=== PATIENT | male | born 1935 | race Caucasian/White ===

== ENCOUNTER → 2016-07-12 | Outpatient (CLI) | payer MEDICARE ==
--- NOTE | 2016-07-12 14:23 | XR ---
EXAMINATION TYPE: XR cervical spine limited DATE OF EXAM: 07/12/2016 2:06 PM COMPARISON: NONE HISTORY: Neck pain following multiple recent falls TECHNIQUE: 3 view cervical spine FINDINGS: There is loss of disc height C4-5 C5-6 and C6-7. Anterior vertebral body spurring is presen t at these levels. There is a grade 1 spondylolisthesis of C7 anterior and T1. The lower portion of t he odontoid is limited due to overlying occiput. On the upper portion is obscured by occiput on the s econd image obtained. Overall, no obvious abnormality of the odontoid is identified on these 2 images . Posterior spinal lamellar line is intact. Prevertebral space is normal. IMPRESSION: 1. Grade 1 spondylolisthesis of C7 on T1. 2. Multilevel degenerative disc changes lower cervical spine.
--- NOTE | 2016-07-15 11:28 | CT ---
EXAMINATION TYPE: CT chest w con, CT abdomen pelvis wo con DATE OF EXAM: 07/12/2016 3:32 PM COMPARISON: Previous CT chest dated 06/13/[address] of the abdomen and pelvis dated 08/21/2015 HISTORY: Pulmonary fibrosis (accession [id number]), LLQ abdominal pain (accession [id number]) CT DLP: 203.90 (accession [id number]), 270.20 (accession [id number]) mGycm Automated exposure control for dose reduction was used. CONTRAST: CT scan of the chest is performed with IV Contrast, patient injected with 100 ml mL of Omnipaque 300. FINDINGS: There is coarse interstitial fibrosis present bilaterally. This may have progressed slightly from the previous study. No parenchymal lesion is identified. There is no significant axillary, mediastinal or hilar adenopathy. There is prominent measuring 3.8 cm. The proximal arch, the aorta measures 3.7 cm. The proximal descending thoracic aorta measures 3 cm. At the level of the aortic hiatus, the aorta is normal in caliber measuring 2.4 cm. There is no pleural or pericardial fluid. The heart is not enlarged. Within the abdomen, the gallbladder is been removed. The liver is unremarkable. There is evidence of old granulomatous disease in the spleen. Both adrenal glands are normal. There is a stable, 5.8 cm cyst arising from the lower pole of the right kidney. There is no evidence of nephrolithiasis. The pancreas appears normal. There is no significant retroperitoneal, iliac or inguinal adenopathy. The prostate is mildly enlarged. There is thickening of the bladder wall which may be due to chronic bladder outlet obstruction There is extensive diverticular change in the sigmoid region with scattered diverticula elsewhere throughout the left side of the colon. There is no radiographic evidence of diverticulitis. The appendix is not visualized. Small bowel loops are normal. There is mild hypertrophic spondylosis within the lower dorsal spine. IMPRESSION: 1. COARSE INTERSTITIAL FIBROSIS WITHIN THE LUNGS, UNCHANGED FROM PREVIOUS. 2. DESCENDING THORACIC AORTIC ANEURYSM WITH MAXIMAL TRANSVERSE DIAMETER OF 3.8 CM. 3. EVIDENCE OF OLD GRANULOMATOUS DISEASE OF THE SPLEEN. 4. STABLE, 5.8 CM RIGHT RENAL CYST. 5. THICKENING OF THE BLADDER WALL, LIKELY SECONDARY TO CHRONIC BLADDER OUTLET OBSTRUCTION. 6. EXTENSIVE DIVERTICULOSIS OF THE SIGMOID COLON. 7. MILD DEGENERATIVE CHANGES WITHIN THE SPINE. 8. NO ACUTE INFLAMMATORY ABNORMALITY. MTDD
--- NOTE | 2016-07-15 11:29 | CT ---
EXAMINATION TYPE: CT chest w con, CT abdomen pelvis wo con DATE OF EXAM: 07/12/2016 3:32 PM COMPARISON: Previous CT chest dated 06/13/[address] of the abdomen and pelvis dated 08/21/19 16 HISTORY: Pulmonary fibrosis (accession [id number]), LLQ abdominal pain (accession [id number]) CT DLP: 203.90 (accession [id number]), 270.20 (accession [id number]) mGycm Automated exposure control for dose reduction was used. CONTRAST: CT scan of the chest is performed with IV Contrast, patient injected with 100 ml mL of Omnipaque 300. FINDINGS: There is coarse interstitial fibrosis present bilaterally. This may have progressed slightl y from the previous study. No parenchymal lesion is identified. There is no significant axillary, mediastinal or hilar adenopathy. There is prominent measuring 3.8 cm. The proximal arch, the aorta measures 3.7 cm. The proximal desce nding thoracic aorta measures 3 cm. At the level of the aortic hiatus, the aorta is normal in caliber measuring 2.4 cm. There is no pleural or pericardial fluid. The heart is not enlarged. Within the abdomen, the gallbladder is been removed. The liver is unremarkable. There is evidence of old granulomatous disease in the spleen. Both adrenal glands are normal. There is a stable, 5.8 cm cyst arising from the lower pole of the right kidney. There is no evidence of nephrolithiasis. The pancreas appears normal. There is no significant retroperitoneal, iliac or inguinal adenopathy. The prostate is mildly enlarged. There is thickening of the bladder wall which may be due to chronic bladder outlet obstruction There is extensive diverticular change in the sigmoid region with scattered diverticula elsewhere thr oughout the left side of the colon. There is no radiographic evidence of diverticulitis. The appendix is not visualized. Small bowel loops are normal. There is mild hypertrophic spondylosis within the lower dorsal spine. IMPRESSION: 1. COARSE INTERSTITIAL FIBROSIS WITHIN THE LUNGS, UNCHANGED FROM PREVIOUS. 2. DESCENDING THORACIC AORTIC ANEURYSM WITH MAXIMAL TRANSVERSE DIAMETER OF 3.8 CM. 3. EVIDENCE OF OLD GRANULOMATOUS DISEASE OF THE SPLEEN. 4. STABLE, 5.8 CM RIGHT RENAL CYST. 5. THICKENING OF THE BLADDER WALL, LIKELY SECONDARY TO CHRONIC BLADDER OUTLET OBSTRUCTION. 6. EXTENSIVE DIVERTICULOSIS OF THE SIGMOID COLON. 7. MILD DEGENERATIVE CHANGES WITHIN THE SPINE. 8. NO ACUTE INFLAMMATORY ABNORMALITY.
== END | disposition home or self-care (01) ==
LOC: RADCTMAIN 13:34
PROVIDERS: ATTEND Family Medicine
DX: J84.10 Pulmonary fibrosis, unspecified (principal); I71.2 Thoracic aortic aneurysm, without rupture; N28.1 Cyst of kidney, acquired; N32.89 Other specified disorders of bladder; K57.30 Diverticulosis of large intestine without perforation or abscess without bleeding; M47.892 Other spondylosis, cervical region; M43.13 Spondylolisthesis, cervicothoracic region
CPT/HCPCS: 36415; 71260; 72040; 74176; 82565; 84520

== ENCOUNTER → 2016-07-12 | Outpatient (CLI) | payer MEDICARE ==
[2016-07-12 14:13] LABS: Blood Urea Nitrogen 14 mg/dL (9-20); Non-African American GFR(MDRD) >60 (>60 ml/min/1.73 sqM)
--- NOTE | 2016-07-15 11:30 | CT ---
EXAMINATION TYPE: CT chest w con, CT abdomen pelvis wo con DATE OF EXAM: 07/12/2016 3:32 PM COMPARISON: Previous CT chest dated 06/13/[address] of the abdomen and pelvis dated 08/21/2015 HISTORY: Pulmonary fibrosis (accession [id number]), LLQ abdominal pain (accession [id number]) CT DLP: 203.90 (accession [id number]), 270.20 (accession [id number]) mGycm Automated exposure control for dose reduction was used. CONTRAST: CT scan of the chest is performed with IV Contrast, patient injected with 100 ml mL of Omnipaque 300. FINDINGS: There is coarse interstitial fibrosis present bilaterally. This may have progressed slightly from the previous study. No parenchymal lesion is identified. There is no significant axillary, mediastinal or hilar adenopathy. There is prominent measuring 3.8 cm. The proximal arch, the aorta measures 3.7 cm. The proximal descending thoracic aorta measures 3 cm. At the level of the aortic hiatus, the aorta is normal in caliber measuring 2.4 cm. There is no pleural or pericardial fluid. The heart is not enlarged. Within the abdomen, the gallbladder is been removed. The liver is unremarkable. There is evidence of old granulomatous disease in the spleen. Both adrenal glands are normal. There is a stable, 5.8 cm cyst arising from the lower pole of the right kidney. There is no evidence of nephrolithiasis. The pancreas appears normal. There is no significant retroperitoneal, iliac or inguinal adenopathy. The prostate is mildly enlarged. There is thickening of the bladder wall which may be due to chronic bladder outlet obstruction There is extensive diverticular change in the sigmoid region with scattered diverticula elsewhere throughout the left side of the colon. There is no radiographic evidence of diverticulitis. The appendix is not visualized. Small bowel loops are normal. There is mild hypertrophic spondylosis within the lower dorsal spine. IMPRESSION: 1. COARSE INTERSTITIAL FIBROSIS WITHIN THE LUNGS, UNCHANGED FROM PREVIOUS. 2. DESCENDING THORACIC AORTIC ANEURYSM WITH MAXIMAL TRANSVERSE DIAMETER OF 3.8 CM. 3. EVIDENCE OF OLD GRANULOMATOUS DISEASE OF THE SPLEEN. 4. STABLE, 5.8 CM RIGHT RENAL CYST. 5. THICKENING OF THE BLADDER WALL, LIKELY SECONDARY TO CHRONIC BLADDER OUTLET OBSTRUCTION. 6. EXTENSIVE DIVERTICULOSIS OF THE SIGMOID COLON. 7. MILD DEGENERATIVE CHANGES WITHIN THE SPINE. 8. NO ACUTE INFLAMMATORY ABNORMALITY. MTDD
== END | disposition home or self-care (01) ==
LOC: RADCTMAIN 13:41
PROVIDERS: ATTEND Internal Medicine Critical Care Medicine
DX: J84.10 Pulmonary fibrosis, unspecified (principal); I71.2 Thoracic aortic aneurysm, without rupture; N28.1 Cyst of kidney, acquired; N32.89 Other specified disorders of bladder; K57.30 Diverticulosis of large intestine without perforation or abscess without bleeding
CPT/HCPCS: 82565; 84520; 71260; 36415; Q9967

== ENCOUNTER → 2017-07-02 | Outpatient (CLI) | payer MEDICARE ==
[2017-07-02 10:31] LABS: Blood Urea Nitrogen 12 mg/dL (9-20)
--- NOTE | 2017-07-02 12:05 | CT ---
EXAMINATION TYPE: CT chest w con DATE OF EXAM: 07/02/2017 COMPARISON: CT chest July 12, 2016 HISTORY: Idiopathic Pulmonary Fibrosis CT DLP: 131.80 mGycm. Automated Exposure Control for Dose Reduction was Utilized. TECHNIQUE: CT scan of the thorax is performed following with IV Contrast, patient injected with 100 ml mL of Omnipaque 300. FINDINGS: LUNGS: There is persistent bilateral subpleural reticulation and fibrosis with distortion involving u pper and lower lungs from apices to bases with slightly more prominent basilar involvement. No signif icant change or progression from prior study is identified. No new groundglass opacity or consolidati on is seen. No pleural effusion or pneumothorax is noted. There is persistent mild central bronchial dilatation or traction bronchiectasis. No peripheral bronchiectasis is present. No suspicious new nod ules or masses MEDIASTINUM: There are no greater than 1 cm hilar or mediastinal lymph nodes. No cardiomegaly or pe ricardial effusion is seen. Ascending aorta measures up to 3.7 cm in diameter axial image 25 unchang ed from prior. Prominent right and left pulmonary arteries are redemonstrated, CT findings suggesting underlying pulmonary hypertension. There is moderate to severe 3 vessel coronary artery calcificatio n redemonstrated. OTHER: There is better visualization of 6 cm simple appearing cyst lower pole level right kidney post erior aspect. This is stable from prior CT abdomen pelvis study July 12, 2016. There is mild mult ilevel spurring in the thoracic spine. There is stable nonspecific sclerotic focus left L1 vertebra. A few punctate calcifications scattered throughout the spleen are redemonstrated seen better on prior noncontrast study. IMPRESSION: 1. CT findings consistent with IPF redemonstrated as detailed above. No progression or significant ch valorie from prior CT. No acute pulmonary process is noted. 2. Other findings stable as detailed above.
== END | disposition home or self-care (01) ==
LOC: RADCTMAIN 09:44
PROVIDERS: ATTEND Internal Medicine Critical Care Medicine
DX: J84.112 Idiopathic pulmonary fibrosis (principal)
CPT/HCPCS: 82565; 84520; 71260; 36415; Q9967

== ENCOUNTER 2017-09-15 16:42 | Inpatient (IN) | payer MEDICARE ==
[2017-09-15] MEDS ORDERED: IPRATROPIUM-ALBUTEROL 3 ML NEB INHALATION STA (17:41)
[2017-09-15] MEDS ORDERED: SODIUM CHLORIDE 0.9% 1,000 ML IV STA ×2 (17:41)
[2017-09-15 17:58] LABS: Basophils % (A) 0 %; Eosinophils % (A) 0 %; HCT 41.7 % (39.0-53.0); HGB 14.5 gm/dL (13.0-17.5); Lymphocytes # (A) 0.6 k/uL (1.0-4.8); Lymphocytes % (A) 5 %; MCH 30.9 pg (25.0-35.0); MCHC 34.9 g/dL (31.0-37.0); MCV 88.6 fL (80.0-100.0); Mean Platelet Volume 6.5; Monocytes # (A) 0.8 k/uL (0-1.0); Monocytes % (A) 6 %; Neutrophils # (A) 12.2 k/uL (1.3-7.7); Neutrophils % (A) 88 %; Platelet Count 431 k/uL (150-450); RDW 12.7 % (11.5-15.5); WBC 13.8 k/uL (3.8-10.6)
[2017-09-15 18:07] LABS: Appearance,Urine Clear (Clear); Bacteria,Urine Rare /hpf; Bilirubin,Urine Negative (Negative); Blood,Urine Small (Negative); Color,Urine Yellow; Glucose,Urine (UA) Negative (Negative); Hyaline Casts,Urine 139 /lpf (0-2); Ketones,Urine 2+ (Negative); Leukocyte Esterase,Urine Negative (Negative); Mucus,Urine Rare /hpf; Nitrite,Urine Negative (Negative); PH, Urine 6.5 (5.0-8.0); Protein,Urine 2+ (Negative); RBC,Urine 7 /hpf (0-5); Specific Gravity,Urine 1.014 (1.001-1.035); Squamous Epithelial Cell,Urine <1 /hpf (0-4); Urobilinogen,Urine <2.0 mg/dL (<2.0); WBC,Urine 4 /hpf (0-5)
[2017-09-15 18:12] LABS: ALT 31 U/L (21-72); AST 37 U/L (17-59); Albumin 3.1 g/dL (3.5-5.0); Alkaline Phosphatase 90 U/L (38-126); Anion Gap 14 mmol/L; Blood Urea Nitrogen 16 mg/dL (9-20); Calcium 9.4 mg/dL (8.4-10.2); Carbon Dioxide 26 mmol/L (22-30); Chloride 94 mmol/L (98-107); Glucose 111 mg/dL (74-99); Magnesium 2.1 mg/dL (1.6-2.3); Phosphorus 3.3 mg/dL (2.5-4.5); Potassium 4.1 mmol/L (3.5-5.1); Sodium 134 mmol/L (137-145); Total Bilirubin 0.5 mg/dL (0.2-1.3); Total Protein 6.3 g/dL (6.3-8.2)
[2017-09-15 18:13] LABS: INR 1.1 (<1.2); Partial Thromboplastin Time 22.6 sec (22.0-30.0); Prothrombin Time 10.4 sec (9.0-12.0)
--- NOTE | 2017-09-15 18:16 | ED ---
General Adult HPI - General Chief complaint: Recheck/Abnormal Lab/Rx Stated complaint: DERRICK Time Seen by Provider: 09/15/17 16:54 Source: patient, family, RN notes reviewed, old records reviewed, Caregiver Mode of arrival: wheelchair Limitations: altered mental status, physical limitation - History of Present Illness Initial comments: This is an 82-year-old male to the ER for evaluation of severe weakness. Patient sent in by family doctor for further evaluation and management. Patient not eating appropriately, increasing shortness of breath weakness fatigue. Constantly sleeping. No recent change in medications. Patient hospital about 5 days ago and had significant worsening of symptoms since - Related Data Home Medications Medication Instructions Recorded Confirmed Ezetimibe [Zetia] 10 mg PO HS 11/15/13 09/15/17 Fish Oil/Dha/Epa [Fish Oil 1,200 1 cap PO BID 11/15/13 09/15/17 mg Fish Oil] Multivitamin [Men's Multi-Vitamin] 1 tab PO DAILY 11/15/13 09/15/17 Red Yeast Rice 1,200 mg PO DAILY 11/15/13 09/15/17 Ubidecarenone [Coq-10] 100 mg PO DAILY 11/15/13 09/15/17 Aloe Vera 25 mg PO DAILY 09/11/17 09/15/17 Aspirin EC [Ecotrin] 325 mg PO DAILY 09/11/17 09/15/17 Baclofen 10 mg PO BID 09/11/17 09/15/17 Gabapentin [Neurontin] 300 mg PO HS 09/11/17 09/15/17 Healthy Eyes 1 tab PO BID 09/11/17 09/15/17 Magnesium Chloride [Mag64] 64 mg PO DAILY 09/11/17 09/15/17 Metoprolol Succinate (ER) [Toprol 25 mg PO DAILY 09/11/17 09/15/17 Xl] Omeprazole 40 mg PO DAILY 09/11/17 09/15/17 Previous Rx's Medication Instructions Recorded Sucralfate [Carafate] 1 gm PO ACHS #414 ml 09/11/17 Allergies Allergy/AdvReac Type Severity Reaction Status Date / Time No Known Allergies Allergy Verified 09/15/17 17:33 Review of Systems ROS Statement: Those systems with pertinent positive or pertinent negative responses have been documented in the HPI. ROS Other: All systems not noted in ROS Statement are negative. Past Medical History Past Medical History: Eye Disorder, GERD/Reflux, Hyperlipidemia, Myocardial Infarction (PR), Musculoskeletal Disorder, Osteoarthritis (OA), Respiratory Disorder Additional Past Medical History / Comment(s): has generalized muscle spasms, pulmonary fibrosis,beginning of macular degeneration Last Myocardial Infarction Date:: 2002 History of Any Multi-Drug Resistant Organisms: None Reported Past Surgical History: Heart Catheterization With Stent, Orthopedic Surgery Additional Past Surgical History / Comment(s): lung biopsy, elbow surg. Past Anesthesia/Blood Transfusion Reactions: Postoperative Nausea & Vomiting ( PONV) Date of Last Stent Placement:: 2002 Past Psychological History: Anxiety, Depression Smoking Status: Never smoker Past Alcohol Use History: None Reported Past Drug Use History: None Reported General Exam Limitations: altered mental status, physical limitation General appearance: alert, in no apparent distress Head exam: Present: atraumatic, normocephalic, normal inspection Eye exam: Present: normal appearance, PERRL, EOMI. Absent: scleral icterus, conjunctival injection, periorbital swelling ENT exam: Present: normal exam, mucous membranes moist Neck exam: Present: normal inspection. Absent: tenderness, meningismus, lymphadenopathy Respiratory exam: Present: respiratory distress, wheezes. Absent: normal lung sounds bilaterally, rales, rhonchi, stridor Cardiovascular Exam: Present: normal rhythm, tachycardia, normal heart sounds. Absent: systolic murmur, diastolic murmur, rubs, gallop, clicks GI/Abdominal exam: Present: soft, normal bowel sounds. Absent: distended, tenderness, guarding, rebound, rigid Extremities exam: Present: normal inspection, full ROM, normal capillary refill. Absent: tenderness, pedal edema, joint swelling, calf tenderness Back exam: Present: normal inspection Neurological exam: Present: alert, oriented X3, CN II-XII intact Psychiatric exam: Present: normal affect, normal mood Skin exam: Present: warm, dry, intact, normal color. Absent: rash Course Vital Signs 09/15/17 09/15/17 09/15/17 16:47 18:15 18:19 Temperature Pulse Rate 110 H 108 H 106 H Respiratory 22 20 Rate Blood Pressure 169/101 166/89 O2 Sat by Pulse 90 L 98 Oximetry 09/15/17 09/15/17 18:31 19:32 Temperature 97.4 F L Pulse Rate 106 H 109 H Respiratory 16 Rate Blood Pressure 166/89 O2 Sat by Pulse 94 L Oximetry - Reevaluation(s) Reevaluation #1: 09/15/17 20:07 Patient with no real improvement after resuscitation and breathing treatments, given pain control EKG Findings - EKG Comments: EKG Findings:: EKG shows sinus tachycardia rate 104, AR 156, QRS 92, QTc 457 Medical Decision Making - Medical Decision Making 82 male the ER for evaluation regarding weakness, dehydration, fibrosis and hypoxia. Tachycardia. Patient to be admitted for continued evaluation resuscitation - Lab Data Result diagrams: 09/15/17 17:33 09/15/17 17:33 Lab Results 09/15/17 09/15/17 09/15/17 Range/Units 17:33 17:33 17:33 WBC 13.8 H (3.8-10.6) k/uL RBC 4.70 (4.30-5.90) m/uL Hgb 14.5 (13.0-17.5) gm/dL Hct 41.7 (39.0-53.0) % MCV 88.6 (80.0-100.0) fL MCH 30.9 (25.0-35.0) pg MCHC 34.9 (31.0-37.0) g/dL RDW 12.7 (11.5-15.5) % Plt Count 431 (150-450) k/uL Neutrophils % 88 % Lymphocytes % 5 % Monocytes % 6 % Eosinophils % 0 % Basophils % 0 % Neutrophils # 12.2 H (1.3-7.7) k/uL Lymphocytes # 0.6 L (1.0-4.8) k/uL Monocytes # 0.8 (0-1.0) k/uL Eosinophils # 0.0 (0-0.7) k/uL Basophils # 0.0 (0-0.2) k/uL PT (9.0-12.0) sec INR (<1.2) APTT (22.0-30.0) sec Sodium 134 L (137-145) mmol/L Potassium 4.1 (3.5-5.1) mmol/L Chloride 94 L (98-107) mmol/L Carbon Dioxide 26 (22-30) mmol/L Anion Gap 14 mmol/L BUN 16 (9-20) mg/dL Creatinine 0.57 L (0.66-1.25) mg/dL Est GFR (CKD-EPI)AfAm >90 (>60 ml/min/1.73 sqM) Est GFR (CKD-EPI)NonAf >90 (>60 ml/min/1.73 sqM) Glucose 111 H (74-99) mg/dL Calcium 9.4 (8.4-10.2) mg/dL Phosphorus 3.3 (2.5-4.5) mg/dL Magnesium 2.1 (1.6-2.3) mg/dL Total Bilirubin 0.5 (0.2-1.3) mg/dL AST 37 (17-59) U/L ALT 31 (21-72) U/L Alkaline Phosphatase 90 (38-126) U/L Total Creatine Kinase 102 (55-170) U/L CK-MB (CK-2) 5.1 H* (0.0-2.4) ng/mL CK-MB (CK-2) Rel Index 5.0 Troponin I 1.010 H* (0.000-0.034) ng/mL Total Protein 6.3 (6.3-8.2) g/dL Albumin 3.1 L (3.5-5.0) g/dL TSH 1.450 (0.465-4.680) mIU/L Urine Color Urine Appearance (Clear) Urine pH (5.0-8.0) Ur Specific [place] (1.001-1.035) Urine Protein (Negative) Urine Glucose (UA) (Negative) Urine Ketones (Negative) Urine Blood (Negative) Urine Nitrite (Negative) Urine Bilirubin (Negative) Urine Urobilinogen (<2.0) mg/dL Ur Leukocyte Esterase (Negative) Urine RBC (0-5) /hpf Urine WBC (0-5) /hpf Ur Squamous Epith Cells (0-4) /hpf Urine Bacteria (None) /hpf Hyaline Casts (0-2) /lpf Urine Mucus (None) /hpf 09/15/17 09/15/17 Range/Units 17:33 17:48 WBC (3.8-10.6) k/uL RBC (4.30-5.90) m/uL Hgb (13.0-17.5) gm/dL Hct (39.0-53.0) % MCV (80.0-100.0) fL MCH (25.0-35.0) pg MCHC (31.0-37.0) g/dL RDW (11.5-15.5) % Plt Count (150-450) k/uL Neutrophils % % Lymphocytes % % Monocytes % % Eosinophils % % Basophils % % Neutrophils # (1.3-7.7) k/uL Lymphocytes # (1.0-4.8) k/uL Monocytes # (0-1.0) k/uL Eosinophils # (0-0.7) k/uL Basophils # (0-0.2) k/uL PT 10.4 (9.0-12.0) sec INR 1.1 (<1.2) APTT 22.6 (22.0-30.0) sec Sodium (137-145) mmol/L Potassium (3.5-5.1) mmol/L Chloride (98-107) mmol/L Carbon Dioxide (22-30) mmol/L Anion Gap mmol/L BUN (9-20) mg/dL Creatinine (0.66-1.25) mg/dL Est GFR (CKD-EPI)AfAm (>60 ml/min/1.73 sqM) Est GFR (CKD-EPI)NonAf (>60 ml/min/1.73 sqM) Glucose (74-99) mg/dL Calcium (8.4-10.2) mg/dL Phosphorus (2.5-4.5) mg/dL Magnesium (1.6-2.3) mg/dL Total Bilirubin (0.2-1.3) mg/dL AST (17-59) U/L ALT (21-72) U/L Alkaline Phosphatase (38-126) U/L Total Creatine Kinase (55-170) U/L CK-MB (CK-2) (0.0-2.4) ng/mL CK-MB (CK-2) Rel Index Troponin I (0.000-0.034) ng/mL Total Protein (6.3-8.2) g/dL Albumin (3.5-5.0) g/dL TSH (0.465-4.680) mIU/L Urine Color Yellow Urine Appearance Clear (Clear) Urine pH 6.5 (5.0-8.0) Ur Specific [place] 1.014 (1.001-1.035) Urine Protein 2+ H (Negative) Urine Glucose (UA) Negative (Negative) Urine Ketones 2+ H (Negative) Urine Blood Small H (Negative) Urine Nitrite Negative (Negative) Urine Bilirubin Negative (Negative) Urine Urobilinogen <2.0 (<2.0) mg/dL Ur Leukocyte Esterase Negative (Negative) Urine RBC 7 H (0-5) /hpf Urine WBC 4 (0-5) /hpf Ur Squamous Epith Cells <1 (0-4) /hpf Urine Bacteria Rare H (None) /hpf Hyaline Casts 139 H (0-2) /lpf Urine Mucus Rare H (None) /hpf - Radiology Data Radiology results: report reviewed (Chest x-rays negative for acute disease), image reviewed Disposition Clinical Impression: Weakness, Dehydration, Elevated troponin Disposition: ADMITTED IP TO THIS [facility] Condition: Undetermined Is patient prescribed a controlled substance at discharge?: No If prescribed controlled substance>3 days was MAPS reviewed?: No When asked, does pt state using other controlled substances?: Yes Referrals: Rodrigo Gaffney MD [Primary Care Provider] - 1-2 days
[2017-09-15 18:48] LABS: Creatine Kinase MB 5.1 ng/mL (0.0-2.4); Troponin I 1.01 ng/mL (0.000-0.034)
--- NOTE | 2017-09-15 19:32 | XR ---
EXAMINATION: XR chest 2V DATE AND TIME: 09/15/2017 6:59 PM ORDERING PROVIDER: Christiano Mac DO CLINICAL INDICATION: Weakness TECHNIQUE: PA and lateral COMPARISON: 04/21/2012 DESCRIPTION: There is marked obscuration of the pulmonary vasculature by a fine reticular pattern of increased density throughout the lungs bilaterally and diffusely, with areas of coalescent opacity ai rspace filling process laterally involving the mid and lower lung zone. These changes suggest a compo nent of pulmonary edema. There is a baseline coarse reticular pattern throughout the lungs consistent with chronic interstitia l lung change. Cardiac silhouette top normal, similar in appearance. Pleural spaces unremarkable. Bones and soft tissues negative for acute findings. IMPRESSION: MARKED PULMONARY ABNORMALITIES, RIGHT GREATER THAN LEFT.
[2017-09-15] MEDS ORDERED: NITROGLYCERIN SL TABS 0.4 MG TAB SUBLINGUAL PRN (20:03)
[2017-09-15] MEDS ORDERED: DEXTROSE 5%-0.45% NACL 1,000 ML IV ONE (20:08)
[2017-09-15] MEDS ORDERED: MORPHINE SULFATE 4MG/4ML SYRG IVP PRN (20:08)
[2017-09-15] MEDS ORDERED: HEPARIN SOD,PORK IN 0.45% NACL 25,000 UNIT in 0.45% NACL 1 500ML.BAG IV SCH (22:15)
[2017-09-15] MEDS ORDERED: ONDANSETRON 4 MG/2 ML VIAL IVP PRN (22:30)
[2017-09-15] MEDS ORDERED: CALCIUM CARBONATE 500 MG CHEWABLE PO PRN (22:30)
[2017-09-15] MEDS ORDERED: MAGNESIUM HYDROXIDE 2,400 MG/10 ML CUP PO PRN (22:30)
[2017-09-15] MEDS ORDERED: MELATONIN 3 MG TABLET PO PRN (22:30)
[2017-09-15] MEDS ORDERED: LACTULOSE 20 GM/30 ML CUP PO PRN (22:30)
[2017-09-15] MEDS ORDERED: GABAPENTIN 300 MG CAP PO SCH (22:30)
[2017-09-15] MEDS ORDERED: ALPRAZolam 0.25 MG TAB PO PRN (22:30)
[2017-09-15] MEDS ORDERED: NALOXONE 0.4 MG/ML 1 ML VIAL IV PRN (22:30)
[2017-09-15] MEDS ORDERED: EZETIMIBE 10 MG TAB PO SCH (22:30)
[2017-09-15] MEDS ORDERED: ACETAMINOPHEN TAB 325 MG TAB PO PRN (22:30)
[2017-09-15] MEDS ORDERED: cefTRIAXone IN SWFI 1,000 MG/10 ML SYRINGE IVP SCH (23:00)
--- NOTE | 2017-09-15 23:15 | HP ---
HISTORY AND PHYSICAL OF ADMISSION: September 15, 2017. PRESENTING COMPLAINT: Short of breath, tired. HISTORY OF PRESENTING COMPLAINT: 82 -year-old patient of Dr. Rodrigo Gaffney out of [facility]. The patient presents with his and 2 daughters. The patient has a known diagnosis of pulmonary fibrosis, being followed by Dr. Spangler. Also known history of coronary artery with stent. For last few days, progressively getting worse. A bit more short of breath, slight cough. No obvious fever, tired, run down. The patient was in the ER [address] scan of the chest showed possible pneumonitis. The patient was sent home for further workup as an outpatient. The patient denies any obvious chest pressure, was short of breath. The patient has got decreased appetite, has been losing more weight and also 9 mm shunt was found on the pancreas on the CT scan done in the ER visit 2 days ago. Because of all these combination of symptoms, the patient was sent in from Dr. Gaffney's office to the ER. REVIEW OF SYSTEMS: Constitutional: Loss of appetite, weight loss. HEENT none. Respiratory: Short of breath, cough. No sputum. Gastrointestinal none. Genitourinary decreased urine output. Musculoskeletal: Arthritic pain in many joints. Hematologic, lymphatic none. Psychiatry: Some anxiety and depression. Neurological none. PAST MEDICAL HISTORY: Pulmonary fibrosis. BPH and GERD, osteoarthritis, coronary artery disease with stent, muscle spasms, macular degeneration. PAST SURGICAL HISTORY: Cardiac cath with stent, right lung biopsy. PSYCH HISTORY: Anxiety, depression. SOCIAL HISTORY: Does not smoke or drink alcohol. 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 . FAMILY HISTORY: Reviewed, noncontributory to presentation. HOME MEDICATIONS: 1. CO Q 10 100 mg p.o. daily. 2. Carafate 1 g p.o. q.a.c. and q.h.s. 3. Red yeast rice 200 mg p.o. daily. 4. Omeprazole 40 mg p.o. daily. 5. Men's multivitamin 1 tab p.o. daily. 6. Toprol-XL 25 mg p.o. daily. 7. Magnesium 64 mg p.o. daily. 8. Healthy eyes 1 tab p.o. b.i.d. 9. Neurontin 300 mg q.h.s. 10.Fish oil 1200 mg 1 capsule p.o. b.i.d. 11.Zetia 10 mg p.o. q.h.s. 12.Baclofen 10 mg p.o. b.i.d. 13.Aspirin 325 p.o. daily. 14.Aloe Vera 25 mg p.o. daily. ALLERGIES: None. PHYSICAL EXAMINATION: Temperature 97.4, pulse 120, respirations 16, blood pressure 156/80, pulse ox 93% on room air. General appearance: Thin build, loss of muscle mass, lying in bed, very tired-appearing. BMI 18.8. HEENT: External appearance of nose and ears normal. Oral cavity dry. Neck JVD not raised. Mass not palpable. Respiratory effort increased. Lungs diffuse crackles. Cardiovascular 1st and second sounds normal. No edema. ABDOMEN: Soft. Abdomen scaphoid. Liver and spleen not palpable. No mass palpable. Lymphatics: No lymph nodes palpable in the neck or axillae. PSYCHIATRY: Alert and oriented x3. Mood and affect anxious-appearing. Neurological: Pupils equal. Cranial nerves grossly intact. Power sensation grossly intact. Musculoskeletal diffuse wasting of the muscles. INVESTIGATIONS: White count 13.8, hemoglobin 14.5, potassium 4.1, BUN 16, creatinine 0.57, troponin 1.0. TSH normal. EKG sinus tachycardia with possible P-pulmonale. CT scan from 2 days ago evidence of pulmonary fibrosis with possible superimposed infiltrate. ASSESSMENT: 1. Possible acute myocardial infarction, non-Q-wave difficult to say when the symptoms started. 2. Pulmonary fibrosis. 3. Possible superimposed pneumonia suspect gram-negative organism. 4. Sigmoid diverticulosis, asymptomatic. 5. Benign prostatic hypertrophy. 6. Gastroesophageal reflux disease. 7. Primary osteoarthritis. 8. Coronary artery disease, prior history of stent. 9. Mild protein calorie malnutrition from decreased oral intake. 10.Pancreatic 9 mm shadow. PLAN: Patient is put on IV heparin, beta steve, aspirin. We will start on IV ceftriaxone. Consultation is made to Cardiology, Pulmonary and Gastroenterology. Care was discussed with the patient and at the bedside. Questions were answered. Copy Dr. Gaffney from [facility]. MMODL / IJN: [id number] /
[2017-09-16 01:27] LABS: Creatine Kinase MB 4.3 ng/mL (0.0-2.4); Troponin I 0.874 ng/mL (0.000-0.034)
[2017-09-16 05:49] LABS: Cholesterol 91 mg/dL (<200); HDL Cholesterol 29 mg/dL (40-60); LDL Cholesterol,Calculated 51 mg/dL (0-99); Triglycerides 53 mg/dL (<150)
[2017-09-16 06:46] LABS: Creatine Kinase MB 3.9 ng/mL (0.0-2.4); Troponin I 0.771 ng/mL (0.000-0.034)
[2017-09-16] MEDS ORDERED: PANTOPRAZOLE 40 MG TABLET PO SCH (07:30)
--- NOTE | 2017-09-16 08:32 | P.CRDCN ---
History of Present Illness Consult date: 09/16/17 Requesting physician: Hollis Squires Reason for Consult (text): Abnormal troponins Chief complaint: Weakness and tiredness History of present illness: This is a pleasant 82-year-old gentleman who follows with Dr. Pena in the office. He has known history of coronary artery disease with prior myocardial infarction and stent placement in 2002 according to him, LAD stent at that time, history of pulmonary fibrosis, hyperlipidemia, he presents to the hospital on this occasion with symptoms of progressive weakness and tiredness. There were no family members at his bedside at the time of my examination, he is able to give history but is extremely tired and slow to speak. Patient states that in the past 6 months or so he has lost a significant amount of weight. He denies having any abdominal discomfort or chest discomfort at home. Troponins were drawn on admission here which came back to be abnormal and for this reason a cardiology consultation was requested. EKG on admission here showed a sinus tachycardia with no acute changes. Chest x-ray reveals marked pulmonary abnormalities right greater than left. Patient has been in the emergency room, he had a CTA of the abdomen and pelvis performed which revealed chronic pulmonary fibrosis, multifocal pneumonia or some type of inflammatory pneumonitis which was new from his CAT scan of June. A possible 9 mm enhancing soft tissue nodule also noted on the pancreas. Blood pressure 162/78 , heart rate 108, afebrile, 96% on 2 L of oxygen. White blood cell count 13.8, hemoglobin 14.5, platelet count 431. Sodium 134, potassium 4.1, BUN 16, creatinine 0.7. Troponins 1.0, 0.8, 0.7. TSH 1.45. At the time of my examination this morning, patient is extremely weak, denies chest pain, significantly short of breath, no dizziness or lightheadedness. Patient states that he wishes to have no further procedures done in relation to his heart, he states that he wants to be kept comfortable. We will discuss this further with the family arrives Past Medical History Past Medical History: Eye Disorder, GERD/Reflux, Hyperlipidemia, Myocardial Infarction ([place]), Musculoskeletal Disorder, Osteoarthritis (OA), Respiratory Disorder Additional Past Medical History / Comment(s): has generalized muscle spasms, pulmonary fibrosis,beginning of macular degeneration Last Myocardial Infarction Date:: 2002 History of Any Multi-Drug Resistant Organisms: None Reported Past Surgical History: Heart Catheterization With Stent, Orthopedic Surgery Additional Past Surgical History / Comment(s): lung biopsy, elbow surg. Past Anesthesia/Blood Transfusion Reactions: Postoperative Nausea & Vomiting ( PONV) Date of Last Stent Placement:: 2002 Past Psychological History: Anxiety, Depression Smoking Status: Never smoker Past Alcohol Use History: None Reported Past Drug Use History: None Reported Medications and Allergies Home Medications Medication Instructions Recorded Confirmed Type Ezetimibe [Zetia] 10 mg PO HS 11/15/13 09/15/17 History Fish Oil/Dha/Epa [Fish Oil 1,200 1 cap PO BID 11/15/13 09/15/17 History mg Fish Oil] Multivitamin [Men's Multi-Vitamin] 1 tab PO DAILY 11/15/13 09/15/17 History Red Yeast Rice 1,200 mg PO DAILY 11/15/13 09/15/17 History Ubidecarenone [Coq-10] 100 mg PO DAILY 11/15/13 09/15/17 History Aloe Vera 25 mg PO DAILY 09/11/17 09/15/17 History Aspirin EC [Ecotrin] 325 mg PO DAILY 09/11/17 09/15/17 History Baclofen 10 mg PO BID 09/11/17 09/15/17 History Gabapentin [Neurontin] 300 mg PO HS 09/11/17 09/15/17 History Healthy Eyes 1 tab PO BID 09/11/17 09/15/17 History Magnesium Chloride [Mag64] 64 mg PO DAILY 09/11/17 09/15/17 History Metoprolol Succinate (ER) [Toprol 25 mg PO DAILY 09/11/17 09/15/17 History Xl] Omeprazole 40 mg PO DAILY 09/11/17 09/15/17 History Sucralfate [Carafate] 1 gm PO ACHS #414 ml 09/11/17 09/15/17 Rx Allergies Allergy/AdvReac Type Severity Reaction Status Date / Time No Known Allergies Allergy Verified 09/15/17 17:33 Physical Exam Vitals: Vital Signs Temp Pulse Pulse Resp BP BP Pulse Ox 09/16/17 08:00 97.6 F 106 H 20 162/78 96 09/16/17 04:00 98.0 F 108 H 24 154/76 96 09/15/17 23:53 97.3 F L 108 H 20 168/74 97 09/15/17 21:10 98.4 F 120 H 16 156/80 93 L 09/15/17 19:32 97.4 F L 109 H 16 166/89 94 L 09/15/17 18:31 106 H 09/15/17 18:19 106 H 20 166/89 98 09/15/17 18:15 108 H 09/15/17 16:47 110 H 22 169/101 90 L Intake and Output 09/15/17 09/16/17 09/16/17 22:59 06:59 14:59 Intake Total 106.221 Output Total 700 200 Balance -593.779 -200 Intake: Intake, IV Titration 106.221 Amount Heparin Sod,Pork in 0.45% 106.221 NaCl 25,000 unit In 0.45 % NaCl 1 500ml.bag @ 12 UNITS/KG/HR 13.06 mls/hr IV .Q24H [facility], [facility] Rx#: [id number] Output: Urine 700 200 Other: Voiding Method Urinal # Voids 1 1 # Bowel Movements 0 Weight 54.431 kg 52.5 kg PHYSICAL EXAMINATION: This is an extremely frail 82-year-old gentleman HEENT: Head is atraumatic, normocephalic. Pupils equal, round. Neck is supple. There is no elevated jugular venous pressure. HEART EXAMINATION: Heart S1 S2 1 systolic murmur is heard CHEST EXAMINATION: Lungs reveal coarse rales throughout. ABDOMEN: Soft, nontender. Bowel sounds are heard. No organomegaly noted. EXTREMITIES: 2+ peripheral pulses with no evidence of peripheral edema and no calf tenderness noted. NEUROLOGIC patient is awake, sleepy, alert and oriented -3. . Results 09/15/17 17:33 09/15/17 17:33 Cardiac Enzymes 09/15/17 09/15/17 09/15/17 Range/Units 17:33 17:33 23:46 AST 37 (17-59) U/L CK-MB (CK-2) 5.1 H* 4.3 H* (0.0-2.4) ng/mL Troponin I 1.010 H* 0.874 H* (0.000-0.034) ng/mL 09/16/17 Range/Units 05:24 AST (17-59) U/L CK-MB (CK-2) 3.9 H* (0.0-2.4) ng/mL Troponin I 0.771 H* (0.000-0.034) ng/mL Coagulation 09/15/17 09/16/17 Range/Units 17:33 05:24 PT 10.4 (9.0-12.0) sec APTT 22.6 26.4 (22.0-30.0) sec Lipids 09/16/17 Range/Units 05:24 Triglycerides 53 (<150) mg/dL Cholesterol 91 (<200) mg/dL HDL Cholesterol 29 L (40-60) mg/dL CBC 09/15/17 Range/Units 17:33 WBC 13.8 H (3.8-10.6) k/uL RBC 4.70 (4.30-5.90) m/uL Hgb 14.5 (13.0-17.5) gm/dL Hct 41.7 (39.0-53.0) % Plt Count 431 (150-450) k/uL Comprehensive Metabolic Panel 09/15/17 Range/Units 17:33 Sodium 134 L (137-145) mmol/L Potassium 4.1 (3.5-5.1) mmol/L Chloride 94 L (98-107) mmol/L Carbon Dioxide 26 (22-30) mmol/L BUN 16 (9-20) mg/dL Creatinine 0.57 L (0.66-1.25) mg/dL Glucose 111 H (74-99) mg/dL Calcium 9.4 (8.4-10.2) mg/dL AST 37 (17-59) U/L ALT 31 (21-72) U/L Alkaline Phosphatase 90 (38-126) U/L Total Protein 6.3 (6.3-8.2) g/dL Albumin 3.1 L (3.5-5.0) g/dL Current Medications Generic Name Dose Route Start Last Admin Trade Name Freq PRN Reason Stop Dose Admin Acetaminophen 650 mg 09/15/17 22:30 Tylenol Tab PO Q6HR PRN Mild Pain or Fever > 100.5 Alprazolam 0.25 mg 09/15/17 22:30 Xanax PO Q6HR PRN Anxiety Calcium Carbonate/Glycine 1,000 mg 09/15/17 22:30 Tums PO Q4HR PRN Dyspepsia Ceftriaxone Sodium 1,000 mg 09/15/17 23:00 09/16/17 00:36 Rocephin IVP 1,000 mg HS ANUSHKA Administration Ezetimibe 10 mg 09/15/17 22:30 09/15/17 22:37 Zetia PO 10 mg HS ANUSHKA Administration Gabapentin 300 mg 09/15/17 22:30 09/15/17 22:37 Neurontin PO 300 mg HS ANUSHKA Administration Heparin Sodium/Sodium Chloride 500 mls @ 13.06 mls/hr 09/15/17 22:15 06:38 25,000 unit/ Sodium Chloride IV 15 units/kg/hr .Q24H ANUSHKA 16.32 mls/hr Protocol Titration 12 UNITS/KG/HR Lactulose 20 gm 09/15/17 22:30 Cephulac PO DAILY PRN Constipation Magnesium Hydroxide 2,400 mg 09/15/17 22:30 Milk Of Magnesia PO DAILY PRN Constipation Magnesium Oxide 400 mg 09/16/17 09:00 09/16/17 08:13 Mag-Ox PO 400 mg DAILY [facility] Administration Melatonin 3 mg 09/15/17 22:30 Melatonin PO HS PRN Insomnia Metoprolol Succinate 25 mg 09/16/17 09:00 09/16/17 08:13 Toprol Xl PO 25 mg DAILY [facility] Administration Morphine Sulfate 4 mg 09/15/17 20:08 09/15/17 20:19 Morphine Sulfate (Inj) IVP 4 mg Q4HR PRN Administration Pain Naloxone HCl 0.2 mg 09/15/17 22:30 Narcan IV Q2M PRN Opioid Reversal Nitroglycerin 0.4 mg 09/15/17 20:03 Nitrostat SUBLINGUAL Q5M PRN Chest Pain Ondansetron HCl 4 mg 09/15/17 22:30 Zofran IVP Q8HR PRN Nausea And Vomiting Pantoprazole Sodium 40 mg 09/16/17 07:30 09/16/17 08:13 Protonix PO 40 mg AC-BRKFST [facility] Administration Intake and Output 09/15/17 09/16/17 09/16/17 22:59 06:59 14:59 Intake Total 106.221 Output Total 700 200 Balance -593.779 -200 Intake: Intake, IV Titration 106.221 Amount Heparin Sod,Pork in 0.45% 106.221 NaCl 25,000 unit In 0.45 % NaCl 1 500ml.bag @ 12 UNITS/KG/HR 13.06 mls/hr IV .Q24H [facility] Rx#: [id number] Output: Urine 700 200 Other: Voiding Method Urinal # Voids 1 1 # Bowel Movements 0 Weight 54.431 kg 52.5 kg 18 17:33 09/15/17 17:33 EKG Interpretations (text) EKG shows a sinus tachycardia with no acute changes. Assessment and Plan Plan: Assessment and plan #1 symptoms of extremely worsening weakness and tiredness with associated weight loss. Recent CTA performed on the 12th of this month revealed pneumonia with possible pneumonitis, 9 mm nodule noted on the pancreas. #2 known history of coronary artery disease with prior LAD stenting #3 hyperlipidemia #4 abnormal troponins, could reflect acute coronary syndrome in this 82-year- old patient with known history of coronary artery disease. Patient does not wish to have any invasive procedures performed. Plan We will obtain an echocardiogram with Doppler study. We will continue conservative maximal medical therapy. Place the patient on a baby aspirin, continue Zetia, increase dose of beta steve for more optimal blood pressure and heart rate control. Further recommendations to follow. DNP note has been reviewed, I agree with a documented findings and plan of care. Patient was seen and examined.
[2017-09-16] MEDS ORDERED: METOPROLOL SUCCINATE (ER) 25 MG TAB.ER.24H PO ONE (08:45)
[2017-09-16] MEDS ORDERED: METOPROLOL SUCCINATE (ER) 25 MG TAB.ER.24H PO SCH (09:00)
[2017-09-16] MEDS ORDERED: ASPIRIN 81 MG PO SCH (09:00)
[2017-09-16] MEDS ORDERED: MAGNESIUM OXIDE 400 MG TAB PO SCH (09:00)
[2017-09-16] MEDS ORDERED: MORPHINE ORAL SOLN 10 MG/5 ML CUP PO PRN (09:25)
--- NOTE | 2017-09-16 09:37 | P.PN ---
Progress Note - Text This is an addendum to the dictated cardiology consultation. The patient has a known history of CAD status post stenting of the LAD who presents with symptoms of progressive fatigue, weakness and significant weight loss over the last 6 months. He denies any symptoms of chest discomfort. His troponin were minimally elevated and cardiology consultation was requested. The patient follows on a regular basis with Dr. Pena. His systolic function in the past was normal and had no history of atrial fibrillation or CHF. He denies any anginal pain. He has a history of pulmonary fibrosis and has been followed by Dr. Spangler. The etiology of his significant weight loss and progressive weakness is unclear. He had a CAT scan done recently the trace the possibility of a lesion on the pancreas. The elevation of his troponin could to present a small non- STEMI but in view of his overall status I do not believe that he is a candidate for any aggressive workup. We will continue the present medical regimen awaiting further evaluation of his weight loss. Thank you for this consult we will follow with you.
[2017-09-16] MEDS ORDERED: ISOSORBIDE MONONITRATE ER 30 MG TAB.ER.24H PO SCH (09:45)
[2017-09-16 09:55] VITALS: BMI 18.1
--- NOTE | 2017-09-16 10:29 | P.CONS ---
History of Present Illness - Reason for Consult Consult date: 09/16/17 Weight loss Requesting physician: Hollis Squires - History of Present Illness 82-year-old gentleman with a history of cholecystectomy, severe pulmonary fibrosis CAD [place] PCI stent admitted with progressive weakness fatigue difficulty speaking secondary to increased shortness of breath. Consult requested for GI evaluation. Apparently patient reports of unintentional 45-50 pound weight loss over the last several months without bleeding or pain. No recent EGD colonoscopy. Difficult to obtain history this patient is profoundly more dyspneic when speaking. 09/11/2017 CTA abdomen and pelvis reported chronic pulmonary fibrosis multifocal pneumonia or possible pneumonitis. Possible 9 mm enhancing soft tissue nodule also noticed on the pancreas in the uncinate process early pancreatic carcinoma cannot be excluded. Prostatomegaly 5.1 cm wide. No jaundice or acholic stools. White count 13.8. Hemoglobin 14.5. Platelets 431. Liver function tests normal. Troponin 0.7-1.0. BNP 8630. INR 1.1. Lipase 30. Previous CT imaging July 2016 reported no abnormalities of the liver. Pancreas appeared normal. Sigmoid diverticulosis. Review of Systems Constitutional: Denies fever, chills, sweats, weight gain, or loss. HEENT: Negative for migraines, history of macular degeneration, denies earaches , drainage, tinnitus, oral mucosal lesions, dysphagia, or odynophagia. Cardiac: Negative for chest pain, arrhythmias, or palpitation. Respiratory: Chronic shortness of breath denies, hemoptysis, cough, or sputum production. Gastrointestinal: See HPI for pertinent findings. Genitourinary: Negative for hematuria, urgency, frequency, polyuria, dysuria, or penile discharge. Musculoskeletal: Negative for muscle aches, swelling, arthritis, and arthralgias. Neurologic: Negative for stroke or TIA. Endocrine: Negative for thyroid problems. Skin: Negative for rash or itching. Psychiatric: History of anxiety. Past Medical History Past Medical History: Eye Disorder, GERD/Reflux, Hyperlipidemia, Myocardial Infarction ([place]), Musculoskeletal Disorder, Osteoarthritis (OA), Respiratory Disorder Additional Past Medical History / Comment(s): has generalized muscle spasms, pulmonary fibrosis,beginning of macular degeneration Last Myocardial Infarction Date:: 2002 History of Any Multi-Drug Resistant Organisms: None Reported Past Surgical History: Heart Catheterization With Stent, Orthopedic Surgery Additional Past Surgical History / Comment(s): lung biopsy, elbow surg. Past Anesthesia/Blood Transfusion Reactions: Postoperative Nausea & Vomiting ( PONV) Date of Last Stent Placement:: 2002 Past Psychological History: Anxiety, Depression Smoking Status: Never smoker Past Alcohol Use History: None Reported Past Drug Use History: None Reported Medications and Allergies Home Medications Medication Instructions Recorded Confirmed Type Ezetimibe [Zetia] 10 mg PO HS 11/15/13 09/15/17 History Fish Oil/Dha/Epa [Fish Oil 1,200 1 cap PO BID 11/15/13 09/15/17 History mg Fish Oil] Multivitamin [Men's Multi-Vitamin] 1 tab PO DAILY 11/15/13 09/15/17 History Red Yeast Rice 1,200 mg PO DAILY 11/15/13 09/15/17 History Ubidecarenone [Coq-10] 100 mg PO DAILY 11/15/13 09/15/17 History Aloe Vera 25 mg PO DAILY 09/11/17 09/15/17 History Aspirin EC [Ecotrin] 325 mg PO DAILY 09/11/17 09/15/17 History Baclofen 10 mg PO BID 09/11/17 09/15/17 History Gabapentin [Neurontin] 300 mg PO HS 09/11/17 09/15/17 History Healthy Eyes 1 tab PO BID 09/11/17 09/15/17 History Magnesium Chloride [Mag64] 64 mg PO DAILY 09/11/17 09/15/17 History Metoprolol Succinate (ER) [Toprol 25 mg PO DAILY 09/11/17 09/15/17 History Xl] Omeprazole 40 mg PO DAILY 09/11/17 09/15/17 History Sucralfate [Carafate] 1 gm PO ACHS #414 ml 09/11/17 09/15/17 Rx Allergies Allergy/AdvReac Type Severity Reaction Status Date / Time No Known Allergies Allergy Verified 09/15/17 17:33 Physical Exam Vitals: Vital Signs Temp Pulse Pulse Resp BP BP Pulse Ox 09/16/17 08:00 97.6 F 106 H 20 162/78 96 09/16/17 04:00 98.0 F 108 H 24 154/76 96 09/15/17 23:53 97.3 F L 108 H 20 168/74 97 09/15/17 21:10 98.4 F 120 H 16 156/80 93 L 09/15/17 19:32 97.4 F L 109 H 16 166/89 94 L 09/15/17 18:31 106 H 09/15/17 18:19 106 H 20 166/89 98 09/15/17 18:15 108 H 09/15/17 16:47 110 H 22 169/101 90 L Intake and Output 09/15/17 09/16/17 09/16/17 22:59 06:59 14:59 Intake Total 106.221 Output Total 700 200 Balance -593.779 -200 Intake: Intake, IV Titration 106.221 Amount Heparin Sod,Pork in 0.45% 106.221 NaCl 25,000 unit In 0.45 % NaCl 1 500ml.bag @ 12 UNITS/KG/HR 13.06 mls/hr IV .Q24H [facility] Rx#: [id number] Output: Urine 700 200 Other: Voiding Method Urinal # Voids 1 1 # Bowel Movements 0 Weight 54.431 kg 52.5 kg 52.5 kg General appearance: The patient is alert, oriented, difficulty breathing with speech. Overall cachectic appearance. HET: Head is normocephalic and atraumatic. Pupils are equal and reactive. Oropharynx is clear without lesions. Neck: Supple without lymphadenopathy. Trachea midline. Heart: S1 S2. Regular rate and rhythm. Lungs: Diminished throughout. Abdomen: Soft, nontender, nondistended with bowel sounds. No peritoneal signs. No palpable organomegaly or masses. Extremities: Normal skin color and turgor. No cyanosis, rash, ulceration, clubbing, or edema. Radial and pedal pulses are 2/4 bilaterally. Neurological: No focal deficits. Strength and sensation are grossly intact. Results CBC & Chem 7: 09/15/17 17:33 09/15/17 17:33 Labs: Abnormal Lab Results - Last 24 Hours (Table) 09/15/17 09/15/17 09/15/17 Range/Units 17:33 17:33 17:33 WBC 13.8 H (3.8-10.6) k/uL Neutrophils # 12.2 H (1.3-7.7) k/uL Lymphocytes # 0.6 L (1.0-4.8) k/uL Sodium 134 L (137-145) mmol/L Chloride 94 L (98-107) mmol/L Creatinine 0.57 L (0.66-1.25) mg/dL Glucose 111 H (74-99) mg/dL CK-MB (CK-2) 5.1 H* (0.0-2.4) ng/mL Troponin I 1.010 H* (0.000-0.034) ng/mL Albumin 3.1 L (3.5-5.0) g/dL HDL Cholesterol (40-60) mg/dL Urine Protein (Negative) Urine Ketones (Negative) Urine Blood (Negative) Urine RBC (0-5) /hpf Urine Bacteria (None) /hpf Hyaline Casts (0-2) /lpf Urine Mucus (None) /hpf 09/15/17 09/15/17 09/16/17 Range/Units 17:48 23:46 05:24 WBC (3.8-10.6) k/uL Neutrophils # (1.3-7.7) k/uL Lymphocytes # (1.0-4.8) k/uL Sodium (137-145) mmol/L Chloride (98-107) mmol/L Creatinine (0.66-1.25) mg/dL Glucose (74-99) mg/dL CK-MB (CK-2) 4.3 H* 3.9 H* (0.0-2.4) ng/mL Troponin I 0.874 H* 0.771 H* (0.000-0.034) ng/mL Albumin (3.5-5.0) g/dL HDL Cholesterol (40-60) mg/dL Urine Protein 2+ H (Negative) Urine Ketones 2+ H (Negative) Urine Blood Small H (Negative) Urine RBC 7 H (0-5) /hpf Urine Bacteria Rare H (None) /hpf Hyaline Casts 139 H (0-2) /lpf Urine Mucus Rare H (None) /hpf 09/16/17 Range/Units 05:24 WBC (3.8-10.6) k/uL Neutrophils # (1.3-7.7) k/uL Lymphocytes # (1.0-4.8) k/uL Sodium (137-145) mmol/L Chloride (98-107) mmol/L Creatinine (0.66-1.25) mg/dL Glucose (74-99) mg/dL CK-MB (CK-2) (0.0-2.4) ng/mL Troponin I (0.000-0.034) ng/mL Albumin (3.5-5.0) g/dL HDL Cholesterol 29 L (40-60) mg/dL Urine Protein (Negative) Urine Ketones (Negative) Urine Blood (Negative) Urine RBC (0-5) /hpf Urine Bacteria (None) /hpf Hyaline Casts (0-2) /lpf Urine Mucus (None) /hpf Microbiology - Last 24 Hours (Table) 09/15/17 17:48 Urine Culture - Preliminary Urine,Voided CT scan - abdomen: report reviewed (Dr. Loredo) Assessment and Plan (1) Weight loss, unintentional Narrative/Plan: 82-year-old male with severe pulmonary fibrosis presents with profound weakness fatigue and anorexia unintentional weight loss 45-[address] imaging reporting prostatomegaly 5.1 cm wide and a possible soft tissue mass 9 mm in the pancreatic uncinate early pancreatic neoplasm cannot be excluded. Status: Acute Code(s): R63.4 - ABNORMAL WEIGHT LOSS SNOMED Code(s): 318504632 (2) Pulmonary fibrosis Status: Acute Code(s): J84.10 - PULMONARY FIBROSIS, UNSPECIFIED SNOMED Code( s): 68399875 (3) Pancreatic mass Narrative/Plan: Possible pancreatic mass uncinate process early neoplasm cannot be excluded Status: Acute Code(s): K86.9 - DISEASE OF PANCREAS, UNSPECIFIED SNOMED Code( s): 901496614 (4) Prostate enlargement Narrative/Plan: Per CT Status: Acute Code(s): N40.0 - BENIGN PROSTATIC HYPERPLASIA WITHOUT LOWER URINRY TRACT SYMP SNOMED Code(s): 447303699 (5) Elevated troponin Status: Acute Code(s): R74.8 - ABNORMAL LEVELS OF OTHER SERUM ENZYMES SNOMED Code(s): 901544168 Plan: 1. CEA. CA-19-9 markers. Recommend urology evaluation for enlarged prostate. EGD colonoscopy is recommended for evaluation of anorexia and unintentional weight loss however patient is presently having difficulty talking with increased respiratory rate secondary to his underlying pulmonary fibrosis. At this time patient is at an increased risk for anesthesia secondary to his underlying lung disease; patient will require pulmonary clearance prior to endoscopic evaluations. Case was discussed with staff submarine warfare officer Dr. Spangler he will evaluate patient today and provided additional guidance. Additionally case was discussed with dietitian continue with protein shake supplementation 3 times a day and diet as tolerated. We'll follow closely with you. Thank you for this kind referral and the opportunity to participate in the care of your patient. This consultation was discussed with Dr. Loredo. The impression and plan of care have been directed as dictated.
[2017-09-16] MEDS ORDERED: LEVOFLOXACIN 750 MG TAB PO SCH (10:45)
[2017-09-16] MEDS ORDERED: PIPERACILLIN-TAZOBACTAM 3.375 GM in DEXTROSE/WATER 1 50ML.BAG IVPB SCH (11:00)
[2017-09-16] MEDS: methylPREDNISolone SOD SUCCI 125 MG/2 ML VIAL IV SCH ×2 (11:26→17:10)
--- NOTE | 2017-09-16 11:31 | ECHOF ---
Referral Reason:abn trop MEASUREMENTS -------- HEIGHT: 170.2 cm WEIGHT: 52.2 kg BP: 162/78 IVSd: 1.4 cm (0.6 - 1.1) LVIDd: 2.9 cm (3.9 - 5.3) LVPWd: 1.2 cm (0.6 - 1.1) IVSs: 1.8 cm LVIDs: 2.3 cm LVPWs: 1.5 cm LAESV Index (A-L): 17.63 ml/m Ao Diam: 3.6 cm (2.0 - 3.7) AV Cusp: 2.3 cm (1.5 - 2.6) LA Diam: 2.3 cm (2.7 - 3.8) MV EXCURSION: 14.056 mm (> 18.000) MV EF SLOPE: 71 mm/s (70 - 150) EPSS: 0.5 cm MV E Shemar: 0.51 m/s MV DecT: 82 ms MV A Shemar: 1.08 m/s MV E/A Ratio: 0.47 RAP: 5.00 mmHg RVSP: 41.77 mmHg FINDINGS -------- Resting tachycardia (HR>100bpm). This was a technically good study. The left ventricular size is normal. There is mild concentric left ventricular hypertrophy. Overa ll left ventricular systolic function is low-normal with, an EF between 50 - 55 %. Mid to basal inf erior hypokinesis The right ventricle is normal in size and function. The left atrium is normal in size. The right atrium is normal in size. Aortic valve is trileaflet and is mildly thickened. The mitral valve leaflets are mildly thickened. Mild mitral annular calcification present. Mild m itral regurgitation is present. Mild tricuspid regurgitation present. There is mild pulmonary hypertension. The right ventricular systolic pressure, as measured by Doppler, is 41.77mmHg. Trace/mild (physiologic) pulmonic regurgitation. The aortic root size is normal. Normal inferior vena cava with normal inspiratory collapse consistent with estimated right atrial pre ssure of 5 mmHg. The pericardium is normal. CONCLUSIONS -------- 1. Resting tachycardia (HR>100bpm). 2. This was a technically good study. 3. The left ventricular size is normal. 4. There is mild concentric left ventricular hypertrophy. 5. Mid to basal inferiorlateral is hypokinetic 6. The right ventricle is normal in size and function. 7. The left atrium is normal in size. 8. The right atrium is normal in size. 9. Aortic valve is trileaflet and is mildly thickened. 10. The mitral valve leaflets are mildly thickened. 11. Mild mitral annular calcification present. 12. Mild mitral regurgitation is present. 13. Mild tricuspid regurgitation present. 14. There is mild pulmonary hypertension. 15. The right ventricular systolic pressure, as measured by Doppler, is 41.77mmHg. 16. Trace/mild (physiologic) pulmonic regurgitation. 17. The aortic root size is normal. 18. Normal inferior vena cava with normal inspiratory collapse consistent with estimated right atrial pressure of 5 mmHg. 19. The pericardium is normal. SALES ACCOUNT REPRESENTATIVE: Kalpana Mae RDCS
[2017-09-16 11:44] LABS: Glucose,Whole Blood 99 mg/dL (75-99)
[2017-09-16] MEDS: INSULIN ASPART 100 UNIT/ML 1 ML 10 ML VIAL SQ SCH ×2 (11:59→17:10)
--- NOTE | 2017-09-16 12:30 | P.CNPUL ---
History of Present Illness Consult date: 09/16/17 Reason for consult: dyspnea Chief complaint: Shortness of breath/IPF History of present illness: This is an 82-year-old male patient who is known to me for history of idiopathic pulmonary fibrosis/IPF. The patient was diagnosed having this disease over 3 years ago. The patient is being followed up with me regularly in the office. The patient over the past years have shown drop in the FVC and diffusion capacity based on repeated pulmonary function testing. The most recent CAT scan of the chest from 2018 was compared to the one that was done earlier last urine showed some limited interval progression of pulmonary fibrosis. The patient did not qualify for oxygen. The patient declined anti- fibrotic treatment. He was doing relatively well and he was having ongoing issues with cramping and episodes of muscle aches and pains. He is also known to have coronary artery disease. In fact, he was last seen in my office in 12/2017 and he demonstrated an FVC of 52% of predicted, FEV1 of 73% of predicted and her diffusion capacity of 48% of predicted and this was considerably lower compared to the previous memory function test that the patient had a general 2016 where his FVC was in the order of 81% and FEV1 was in the order of 92% and diffusion capacity was in the order of 50%. The patient came into the emergency department yesterday with worsening the story status. Apparently over the past 2 months there has been significant decline in his condition. The patient has lost his appetite. He was not eating well. He has lost more than 30 pounds in body weight. He was feeling very fatigued and tired and more short of breath to the point where he was unable to walk around for the past few weeks. He was feeling constantly sleepy. No energy or stamina. On evaluation he looks very lethargic and weak. No chills. No fever. No aspiration. His white cell count was at 13.8. Rest of the electrodes are all within normal limits. Renal. Was stable with a creatinine of 0.5. His troponin was positive with a troponin max of 1.01 and subsequent troponins of 0.8 and 0.7. He denied having any chest pain or angina. He is known to have coronary artery disease. His chest x-ray showed marked obscuration of the pulmonary vasculature with fine reticular pattern of increased density throughout the lung anthony bilaterally and the findings were diffuse with some areas of coalescence opacity/airspace disease more so on the right and mainly in the right lower lobe. The findings were worse on the right compared to left. Cardiology is on the scene and the patient. Echocardiac Mack was done and the patient was found to have mild concentric LVH. No evidence of any significant pulmonary hypertension. The right-sided cardiac structures were all within normal limits. The estimated ejection fraction was low normal at 5055%. Neurologically the patient is awake. Is following all 4 extremities. No altered mentation. Review of Systems Constitutional: Reports daytime sleepiness, Reports fatigue, Reports lethargy, Reports poor appetite, Reports weakness, Reports weight loss Eyes: denies blurred vision, denies bulging eye, denies decreased vision Ears: deny: decreased hearing, ear discharge, earache Ears, nose, mouth and throat: Denies headache, Denies sore throat Cardiovascular: Reports decreased exercise tolerance, Reports dyspnea on exertion, Reports shortness of breath Respiratory: Reports cough, Reports dyspnea Gastrointestinal: Reports loss of appetite, Reports nausea Genitourinary: Reports as per HPI Musculoskeletal: Reports muscle cramps, Reports muscle weakness, Reports myalgias Musculoskeletal: absent: ankle pain, ankle stiffness, ankle swelling Integumentary: Denies pruritus, Denies rash Neurological: Reports weakness Psychiatric: Denies anxiety, Denies depression Endocrine: Reports as per HPI Hematologic/Lymphatic: Reports as per HPI Past Medical History Past Medical History: Eye Disorder, GERD/Reflux, Hyperlipidemia, Myocardial Infarction ([place]), Musculoskeletal Disorder, Osteoarthritis (OA), Respiratory Disorder Additional Past Medical History / Comment(s): Idiopathic pulmonary fibrosis, coronary artery disease, macular degeneration, chronic muscle spasm, Last Myocardial Infarction Date:: 2002 History of Any Multi-Drug Resistant Organisms: None Reported Past Surgical History: Heart Catheterization With Stent, Orthopedic Surgery Additional Past Surgical History / Comment(s): lung biopsy, elbow surg. Past Anesthesia/Blood Transfusion Reactions: Postoperative Nausea & Vomiting ( PONV) Date of Last Stent Placement:: 2002 Past Psychological History: Anxiety, Depression Smoking Status: Never smoker Past Alcohol Use History: None Reported Past Drug Use History: None Reported Medications and Allergies Home Medications Medication Instructions Recorded Confirmed Type Ezetimibe [Zetia] 10 mg PO HS 11/15/13 09/15/17 History Fish Oil/Dha/Epa [Fish Oil 1,200 1 cap PO BID 11/15/13 09/15/17 History mg Fish Oil] Multivitamin [Men's Multi-Vitamin] 1 tab PO DAILY 11/15/13 09/15/17 History Red Yeast Rice 1,200 mg PO DAILY 11/15/13 09/15/17 History Ubidecarenone [Coq-10] 100 mg PO DAILY 11/15/13 09/15/17 History Aloe Vera 25 mg PO DAILY 09/11/17 09/15/17 History Aspirin EC [Ecotrin] 325 mg PO DAILY 09/11/17 09/15/17 History Baclofen 10 mg PO BID 09/11/17 09/15/17 History Gabapentin [Neurontin] 300 mg PO HS 09/11/17 09/15/17 History Healthy Eyes 1 tab PO BID 09/11/17 09/15/17 History Magnesium Chloride [Mag64] 64 mg PO DAILY 09/11/17 09/15/17 History Metoprolol Succinate (ER) [Toprol 25 mg PO DAILY 09/11/17 09/15/17 History Xl] Omeprazole 40 mg PO DAILY 09/11/17 09/15/17 History Sucralfate [Carafate] 1 gm PO ACHS #414 ml 09/11/17 09/15/17 Rx Allergies Allergy/AdvReac Type Severity Reaction Status Date / Time No Known Allergies Allergy Verified 09/15/17 17:33 Physical Exam Vitals: Vital Signs Temp Pulse Pulse Resp BP BP Pulse Ox 09/16/17 12:00 95 20 09/16/17 11:12 97.5 F L 95 20 147/76 95 09/16/17 08:15 106 H 18 09/16/17 08:00 97.6 F 106 H 20 162/78 96 09/16/17 04:00 98.0 F 108 H 24 154/76 96 09/15/17 23:53 97.3 F L 108 H 20 168/74 97 09/15/17 21:10 98.4 F 120 H 16 156/80 93 L 09/15/17 19:32 97.4 F L 109 H 16 166/89 94 L 09/15/17 18:31 106 H 09/15/17 18:19 106 H 20 166/89 98 09/15/17 18:15 108 H 09/15/17 16:47 110 H 22 169/101 90 L Intake and Output 09/15/17 09/16/17 09/16/17 22:59 06:59 14:59 Intake Total 106.221 Output Total 700 350 Balance -593.779 -350 Intake: Intake, IV Titration 106.221 Amount Heparin Sod,Pork in 0.45% 106.221 NaCl 25,000 unit In 0.45 % NaCl 1 500ml.bag @ 12 UNITS/KG/HR 13.06 mls/hr IV .Q24H [facility] Rx#: [id number] Output: Urine 700 350 Other: Voiding Method Urinal Urinal # Voids 1 1 # Bowel Movements 0 Weight 54.431 kg 52.5 kg 52.5 kg The patient is quite lethargic it is calm and comfortable and awake. He is very weak. He is laying in bed and he is in mild degree of respirator distress. At times is unable to complete full sentences. Seems to be lethargic.Head exam was generally normal. There was no scleral icterus or corneal arcus. Mucous membranes were moist.Neck was supple and without jugular venous distension, thyromegaly, or carotid bruits. Carotids were easily palpable bilaterally. There was no adenopathy. Lung sounds are revealing coarse crackles in the mid and lower lung anthony bilaterally. There are crackles are reaching all the way up to the upper lobes bilaterally and there are heard anteriorly and posteriorly. No wheezes.Cardiac exam revealed the PMI to be normally situated and sized. The rhythm was regular and no extrasystoles were noted during several minutes of auscultation. The first and second heart sounds were normal and physiologic splitting of the second heart sound was noted. There were no murmurs, rubs, clicks, or gallops.Abdominal exam revealed normal bowel sounds. The abdomen was soft, non-tender, and without masses, organomegaly, or appreciable enlargement of the abdominal aorta.Examination of the extremities revealed easily palpable radial, femoral and pedal pulses. There was no cyanosis, clubbing or edema. Neurologically the patient extensive muscle weakness both in upper and lower extremities. No focal logical deficits. No facial asymmetry. Is awake and alert. He was able to recognize me and he is oriented and alert at this point.Examination of the skin revealed no evidence of significant rashes, suspicious appearing nevi or other concerning lesions. Results - Laboratory Findings CBC and BMP: 09/15/17 17:33 09/15/17 17:33 PT/INR, D-dimer PT 10.4 sec (9.0-12.0) 09/15/17 17:33 INR 1.1 (<1.2) 09/15/17 17:33 Abnormal lab findings: Abnormal Labs 09/15/17 09/15/17 09/15/17 17:33 17:33 17:33 WBC 13.8 H Neutrophils # 12.2 H Lymphocytes # 0.6 L Sodium 134 L Chloride 94 L Creatinine 0.57 L Glucose 111 H CK-MB (CK-2) 5.1 H* Troponin I 1.010 H* Albumin 3.1 L HDL Cholesterol Urine Protein Urine Ketones Urine Blood Urine RBC Urine Bacteria Hyaline Casts Urine Mucus 09/15/17 09/15/17 09/16/17 17:48 23:46 05:24 WBC Neutrophils # Lymphocytes # Sodium Chloride Creatinine Glucose CK-MB (CK-2) 4.3 H* 3.9 H* Troponin I 0.874 H* 0.771 H* Albumin HDL Cholesterol Urine Protein 2+ H Urine Ketones 2+ H Urine Blood Small H Urine RBC 7 H Urine Bacteria Rare H Hyaline Casts 139 H Urine Mucus Rare H 09/16/17 05:24 WBC Neutrophils # Lymphocytes # Sodium Chloride Creatinine Glucose CK-MB (CK-2) Troponin I Albumin HDL Cholesterol 29 L Urine Protein Urine Ketones Urine Blood Urine RBC Urine Bacteria Hyaline Casts Urine Mucus - Diagnostic Findings Chest x-ray: image reviewed Assessment and Plan Plan: Assessment 1 acute hypoxic respiratory failure with development of diffuse bilateral pulmonary infiltrates in addition to chronic underlying hepatic normally fibrosis with possible superimposed acute exacerbation of IPF/diffuse lung damage versus possible superinfection with pneumonia. 2. Idiopathic pulmonary fibrosis/IPF . The patient was diagnosed having IPF more than 3 years ago. His repeated pulmonary function testing at shown progressive drop in his PFT data. Nevertheless, he has not required oxygen and outpatient basis. He has declined anti-fibrotic treatment and up to recently did not qualify for oxygen. He was having chronic cough and dyspnea for which she was maintained on antitussive medication. 3 coronary artery disease with previous coronary intervention and stenting 4 abnormal troponins, rule out acute non-ST segment elevation myocardial infarction 5 history of muscle cramps 6 history of diverticular disease 7 chronic cough secondary to IPF 8 hyperlipidemia 9 profound weakness and loss of appetite and ongoing weight loss Plan There is a significant changes patient's overall condition. He has become progressively more debilitated specially over the past 2 months. He has lost significant amount of weight. He is profoundly weak and there is obvious ongoing debility. Furthermore, there is been acute worsening his pulmonary status and the patient is currently in acute hypoxic respiratory failure. Suspect acute exacerbation of IPF which typically is a high mortality case associated with diffuse lung damage/DAD. A superimposed lung infection cannot be completely excluded and based on that the patient will be treated with broad- spectrum antibiotics and the patient will placed on accommodation of Zosyn and Levaquin. The patient be started on IV Solu-Medrol. Continue oxygen therapy to maintain a saturation above 90%. The patient will have a CAT scan of the chest for comparison to prior CAT scan of the done earlier this year. We will have a family meeting. We'll discuss the case with the family and make final recommendations and the prognosis will be essentially poor specially if the patient has a typical acute exacerbation of chronic IPF. Cardiology is on the case regarding the troponin leak. We will continue to follow.
--- NOTE | 2017-09-16 12:51 | CT ---
"EXAMINATION TYPE: CT chest wo con DATE OF EXAM: 09/16/2017 COMPARISON: 07/02/2017 HISTORY: Acute exacerbation of interstitial pulmonary fibrosis CT DLP: 373 mGycm. Automated Exposure Control for Dose Reduction was Utilized. TECHNIQUE: CT scan of the thorax is performed without IV contrast. FINDINGS: LUNGS: There is a new right apical pneumothorax with volume of approximately 50%. There is also redem onstration of peripheral basilar predominant reticular opacities with honeycombing slightly progresse d from the prior of 07/02/2017 relating to the patient's known interstitial fibrosis. Additionally the re are new low attenuated areas of confluent airspace disease with air bronchograms in the lower lobe s and right middle lobe new from the prior exam and favored to represent multifocal pneumonia. Calcif ied parenchymal and hilar benign granulomas are seen. Evaluation for pulmonary nodule is extremely li mited given the new consolidations and pulmonary fibrosis. MEDIASTINUM: Lack of IV contrast is noted to limit evaluation for mediastinal and especially hilar ad enopathy. Subcarinal adenopathy measures 1.1 cm and is likely reactive. Heart is borderline enlarged. No pericardial effusion is seen. Moderate three-vessel coronary calcifications are incidentally se en. Ascending thoracic aorta is upper limits of normal in size measuring 3.9 cm on coronal images and 4.0 cm on axial images. Again the right and left main pulmonary arteries are prominent in size sugge sting underlying pulmonary arterial hypertension. OTHER: Punctate benign granulomas are scattered throughout the splenic parenchyma. Partial visualizat ion of a probable right at least 3.9 cm renal cyst is present.. IMPRESSION: 1. New right apical pneumothorax with volume of approximately 5%. Findings were relayed by critical m essage alert to the ordering physician and also relate to the patient's nurse Madonna at [address] Fang barrios. 2. New findings of multifocal pneumonia an atelectasis superimposed upon mildly progressed interstiti al pulmonary fibrosis. 3. Mediastinal adenopathy, likely reactive. 4. Ascending thoracic aorta is upper limits of normal in size. A Yellow level critical message alert has been initiated for Hollis Squires MD via the [employer] 36 0 | Critical Results System on 09/16/2017 12:41 PM. This message alert has been sent to Hollis Squires MD via the preferences provided by the clinician for the receipt of Radiology Critical Findings. [facility] [place] [id number]."
--- NOTE | 2017-09-16 15:32 | FL ---
EXAMINATION TYPE: FL barium swallow w video DATE OF EXAM: 09/16/2017 MODIFIED SWALLOW / DEGLUTITION STUDY CLINICAL HISTORY: Dysphagia. TECHNIQUE: Deglutition study is performed utilizing thin liquid barium, honey and nectar thick liqui d barium, barium thick applesauce, and barium coated cracker. 1 min 36 sec fluoroscopy time. 0 images saved as video fluoroscopy was recorded. COMPARISON: None. FINDINGS: The oral and pharyngeal phases show satisfactory delayed initiation and propagation with al l modalities tested. Delayed mastication is seen with solid modalities tested. Persistent laryngeal p enetration was seen with the thin liquid barium, honey barium consistency and nectar thick liquid bar ium consistency with administration 1 utilizing the thin liquid barium consistency. No aspiration wit h any modality tested. Mild piriform residual was seen with the thin liquid barium, honey barium cons istency and nectar thick liquid barium consistencies. IMPRESSION: Persistent deep phalangeal penetration with thin barium and transient penetration with th e honey and nectar thick liquid barium consistencies. No evidence of aspiration. Please refer to spe ech therapist notes for further details if necessary.
[2017-09-16] MEDS ORDERED: HEPARIN SODIUM,PORCINE 5,000 UNIT/ML 1 ML VIAL IV STA (16:15)
[2017-09-16 16:50] LABS: Glucose,Whole Blood 149 mg/dL (75-99)
[2017-09-16 16:59] VITALS: BP 144/75; PULSE 97; RESP 18; TEMP 97
[2017-09-16 17:27] LABS: Glucose,Whole Blood 150 mg/dL (75-99)
--- NOTE | 2017-09-16 19:14 | PN ---
PROGRESS NOTE DATE OF SERVICE: 09/16/17. PRESENTING COMPLAINT: Short of breath. INTERVAL HISTORY: This is a patient with known pulmonary fibrosis, presenting with much worsening cough, felt to have possible infectious component/pneumonia and/or severe progression of the same and associated acute non-Q-wave DE. The patient continues to feel weak and tired, rundown. Did have a modified barium swallow today. REVIEW OF SYSTEMS: Done for constitutional, cardiovascular, GI, pulmonary; relevant findings as above. CURRENT MEDICATIONS: Reviewed and include IV Zosyn and Levaquin. PHYSICAL EXAMINATION: Temperature 97.5, pulse 94, respirations 20, blood pressure 147/76, pulse ox 95% on 2 L. GENERAL APPEARANCE: Tired, run down, lying in bed. EYES: Pupils equal. Conjunctivae normal. HEENT: External nose and ears normal. Oral cavity normal. NECK: JVD not raised. Mass not palpable. RESPIRATORY: Effort increased, lungs diffuse coarse crackles. CARDIOVASCULAR: First and second sounds normal. No edema. ABDOMEN: Soft, nontender. Liver and spleen not palpable. PSYCHIATRY: Alert and oriented x3. Mood and affect low appearing. INVESTIGATIONS: Troponin 1.0, 0.8, 0.7. CT scan of the chest suggestive of multifocal pneumonia. ASSESSMENT: 1. Pulmonary fibrosis possibly with acute severe progression of the same. 2. Possible superimposed pneumonia suspect gram-negative organism. 3. Possible acute non-Q-wave myocardial infarction. 4. Sigmoid diverticulosis asymptomatic. 5. Benign prostatic hypertrophy. 6. Gastroesophageal reflux disease. 7. Primary osteoarthritis. 8. Coronary artery disease prior history of stent. 9. Mild protein-calorie malnutrition from decreased oral intake. 10.Pancreatic 9 shadow. PLAN: Prognosis is not looking good. We will see how the patient does with the current antibiotics that include IV Zosyn and Levaquin. I discussed with Dr. Spangler. The patient's functional capacity is rather for poor. The patient continues to be on IV heparin for right now and also high dose of IV Solu-Medrol. The patient is definitely slow to respond, not doing too well. The prognosis not being good. The patient did have a modified barium swallow that showed some mild penetration. The speech therapy recommendations will be followed. No family is present currently. MMODL / IJN: [id number] /
[2017-09-16 20:42] LABS: Hemoglobin A1C 5.6 % (4.0-6.0)
[2017-09-17] MEDS ORDERED: METOPROLOL SUCCINATE (ER) 50 MG TAB.ER.24H PO SCH (09:00)
--- NOTE | 2017-09-17 23:35 | DS ---
DISCHARGE SUMMARY DATE OF ADMISSION: 09/15/2017. DATE OF EXPIRATION: 09/17/2017. PROBABLE CAUSE OF : Pulmonary fibrosis. OTHER MEDICAL CONDITIONS: 1. Pneumonia suspect gram-negative organism. 2. Possible acute non-Q-wave myocardial infarction. 3. Sigmoid diverticulosis, asymptomatic. 4. Benign prostatic hyperplasia. 5. Gastroesophageal reflux disease. 6. Primary osteoarthritis. 7. Coronary artery disease with prior history of stent. 8. Mild protein-calorie malnutrition from decreased oral intake. HOSPITAL COURSE: This patient follows with Dr. Miguel Gaffney, losing weight, not feeling well, known history of pulmonary fibrosis. Presented with worsening cough, felt to have acute [place] and possibly pneumonia. The patient had not been doing well. The patient rapidly deteriorated. The patient . CONSULTATIONS: Dr. Spangler from Pulmonary. MMMIREILLEL / LUZN: [id number] /
== END 2017-09-16 21:21 | disposition expired | DRG 177 ==
LOC: EC 16:42 → 6SEL 20:03
PROVIDERS: ADMIT Hospitalist; ATTEND Hospitalist
DX: J15.6 Pneumonia due to other Gram-negative bacteria (principal); I21.4 Non-ST elevation (NSTEMI) myocardial infarction; J96.01 Acute respiratory failure with hypoxia; R64 Cachexia; E44.1 Mild protein-calorie malnutrition; Z68.1 Body mass index [BMI] 19.9 or less, adult; J84.112 Idiopathic pulmonary fibrosis; E86.0 Dehydration; Z66 Do not resuscitate; K86.9 Disease of pancreas, unspecified; N40.0 Benign prostatic hyperplasia without lower urinary tract symptoms; K57.30 Diverticulosis of large intestine without perforation or abscess without bleeding; K21.9 Gastro-esophageal reflux disease without esophagitis; E78.5 Hyperlipidemia, unspecified; I25.10 Atherosclerotic heart disease of native coronary artery without angina pectoris; I25.2 Old myocardial infarction; M19.91 Primary osteoarthritis, unspecified site; H35.30 Unspecified macular degeneration; Z79.82 Long term (current) use of aspirin; Z79.899 Other long term (current) drug therapy; Z95.5 Presence of coronary angioplasty implant and graft; Z86.59 Personal history of other mental and behavioral disorders; Z90.49 Acquired absence of other specified parts of digestive tract
CPT/HCPCS: 36415; 71046; 71250; 74230; 80053; 80061; 81001; 82378; 82550; 82553; 83036; 83735; 83880; 84100; 84443; 84484; 85025; 85610; 85730; 86301; 87086; 93005; 93306; 94640; 94760; 96361; 96374; 99285